=== PATIENT | female | born 1965 | race Caucasian/White ===

== ENCOUNTER → 2017-02-14 | Outpatient (CLI) | payer OTHER ==
[~2017-02-14] MED LIST: GADOBUTROL 10 MMOL/10 ML VIAL IV ONE
--- NOTE | 2017-02-14 17:08 | KCIC ---
INDICATION: Migraine headaches with blurred vision and double vision. TECHNIQUE: MR angiogram neck includes pre and postcontrast imaging with source images and maximum intensity projection reformatted images reviewed. The patient received 9 mL of intravenous Gadavist. Measurements follow NASCET methodology. Imaging is degraded by motion, especially the noncontrast portion of the study. FINDINGS: There is normal branching from the aortic arch. There is no brachiocephalic or subclavian narrowing. Common carotid arteries are without stenosis. There is minimal plaquing at the left carotid bulb. There is no significant stenosis at the carotid bulbs or in either internal carotid artery. The left vertebral artery is dominant. No narrowing along the cervical course of each vertebral artery is apparent. IMPRESSION: Minimal plaquing at the left carotid bulb. No evidence of a hemodynamically significant stenosis. Electronically signed by: Wayne Guerrero MD (02/14/2017 5:04 PM) [id number]
--- NOTE | 2017-02-14 17:19 | KCIC ---
INDICATION: Migraine headaches. Double vision and blurred vision. TECHNIQUE: Source images and maximum intensity projection reformatted images are provided. Axial FLAIR imaging and diffusion imaging with ADC map was performed. No comparison is available. FINDINGS: There is no restricted diffusion to suggest an acute infarct. The ventricles and sulci are within normal limits for age. Cavernous carotids are within normal limits. Anterior and middle cerebral arteries are within normal limits. Both vertebral arteries supply the basilar artery, the left is dominant. No posterior circulation stenosis or aneurysm is apparent. IMPRESSION: Normal intracranial MR angiogram. Electronically signed by: Wayne Guerrero MD (02/14/2017 5:16 PM) [id number]
== END | disposition home or self-care (01) ==
LOC: KCIC MRI 14:09
PROVIDERS: ATTEND Psychiatry & Neurology Neurology
DX: G43.909 Migraine, unspecified, not intractable, without status migrainosus (principal); H53.2 Diplopia
CPT/HCPCS: 70544; 70549; A9585

== ENCOUNTER → 2017-11-26 | Outpatient (CLI) | payer OTHER | END | disposition home or self-care (01) | LOC: KCIC DEXA 07:49 | DX: M48.46XD Fatigue fracture of vertebra, lumbar region, subsequent encounter for fracture with routine healing (principal) | CPT/HCPCS: 77080 ==